=== PATIENT | female | born 1945 | race Caucasian/White ===

== ENCOUNTER → 2019-08-10 | Outpatient (CLI) | payer OTHER ==
[~2019-08-10] VITALS: Ht 157.5 cm; Wt 68.9 kg
[~2019-08-10] MED LIST: ATENOLOL 100MG100 MG PO; AVAPRO300 MG PO; CELEBREX 200 M200 M1 PO; CLARITIN10 M3 PO; FISH OIL + D31 EACH PO; FLORANEX TABLE1 EACH PO; FOSAMAX 70 MG T70 MG PO; LEXAPRO 10 MG T10 M1 PO; NORVASC5 M1 PO; POTASSIUM20 PO; PREMARIN0.625 MG PO; TRIAMTERENE/HCT1 CA1 PO; TUMERIC CURCUMIN PO; VITAMIN C1000 MG PO; WOMEN'S DAILY1 EACH PO
--- NOTE | ~2019-08-10 | HPC ---
[facility] [place] [address] PAIN MANAGEMENT CONSULTATION Name: DOMINIK PHILLIPS Room #: REG [facility].#: [id number] Admission: 08/10/19 Attend Phys: Eliecer Cummings MD Discharge: Date of : 45 Report #: [id number] THIS REPORT FOR: //name// CC: Memo Cummings DATE OF SERVICE: 08/10/2019 CHIEF COMPLAINT: Low back pain secondary to a significant congenital scoliosis with worsening impingement and radiculopathy in the left L3-L4 distribution. The patient is a delightful 74-year-old I am seeing at the request of Dr. Pollock. I have seen her in the past. He responded very favorably to epidural injections and has a favorable response to the procedure! She has been experiencing pain in her left anterior thigh and lateral thigh that is now extending down into the lower leg as well. She also has bilateral hip pain. It has been bad since earlier this spring, but began in earnest in 06/2018. She says it is worse after activity. She has tried chiropractic, physical therapy and does not use much in the way of pain medication other than Celebrex once a day. She is fairly stoic, scoring this pain is a 3/10, worst pain 5/10. MEDICATIONS: Atenolol, irbesartan, amlodipine, triamterene/hydrochlorothiazide, Celebrex, Clarinex, Lexapro, potassium, Premarin, alendronate. She takes numerous supplements, which were reviewed from the record. She carries an EpiPen due to an allergy to NONSTEROIDAL ANTIINFLAMMATORY DRUGS. She suffered anaphylaxis. She is also sensitive to CODEINE which causes nausea and does not take opioids. SOCIAL HISTORY: She denies use of tobacco. Drinks alcoholic beverages a few times a week in a social setting. PAST MEDICAL HISTORY: Positive for hypertension, diffuse osteoarthritis. PREVIOUS SURGERIES: Include breast lumpectomy in 1984, fracture patella in 1998 requiring surgery and hysterectomy in 1989. SOCIAL HISTORY: She is . is supportive and with her. She is a dental hygienist. At the age of 74, still working vp [employer]. She attributes some of her back issues to the bending over she must do in her profession. REVIEW OF SYSTEMS: Positive for fatigue, weakness, occasional night sweats, headaches in the past. She complains of chronic rhinitis and light [facility] [address] [place] [address] PAIN MANAGEMENT CONSULTATION Name: DOMINIK PHILLIPS Room #: REG [facility] Amy#: [id number] Admission: 08/10/19 Attend Phys: Eliecer Cummings MD Discharge: Date of : 45 Report #: [id number] incontinence. She has nocturia. She has a mild essential familial tremor. PHYSICAL EXAMINATION: GENERAL: She is a delightful 74-year-old. She is pleasant, alert and oriented, without signs of depression, anxiety or overmedication. VITAL SIGNS: She is 5 feet 2 inches, 152 pounds, BMI of 27.8. Blood pressure 134/75, heart rate 60, respirations 13. She moves independently from sitting to standing position, walks with mild antalgic gait. Her scoliosis is easily noted even through her clothing. CHEST: Clear to auscultation. CARDIAC: Rhythm is regular. I could not appreciate a murmur. MUSCULOSKELETAL: Reveals good range of motion in the upper extremity joints and in the lower. She has pain across the low back and tenderness in the lumbosacral segment. There is pain with forward flexion and extension of the spine, which reproduces pain into the left leg. Straight leg raising in the sitting and the supine position is positive for reproduction of an L4-L5 radiculopathy. MRI is reviewed with the patient. She does show severe left neural foraminal narrowing at L3-L4, but given her symptoms, I would suspect after looking at the films that the lateral recess is impinging upon the L4 and L5 nerve roots as they pass by the disk. This is likely the source of her pain. IMPRESSION: Lumbar radiculopathy secondary to diffuse degenerative changes, disk protrusion at L3-L4 causing spinal stenosis in the right lateral recess. RECOMMENDATION: Epidural steroid injection under fluoroscopic guidance. PROCEDURE: After informed consent, she was taken to fluoroscopic suite. She was placed prone, skin prepped with ChloraPrep. Skin was anesthetized over the L3-L4 interspace to the left of midline. A 20-gauge Tuohy epidural needle was advanced in the epidural space in first attempt using the loss of resistance technique. There was no blood or CSF aspirated. A 1 mL of Omnipaque was injected and excellent spread of dye was seen along the left lateral recess, was then followed by 3 mL of 0.5% lidocaine. She tolerated the procedure well and was observed for 45 minutes and discharged. She had no weakness. Pain was improved at discharge. She did have a period of incontinence in the recovery room, but is often times slightly incontinent at any rate. This should not be pathologic and we reassured Followup visit planned as needed in 1-2 months. By: [id number] Eliecer Cummings MD /nt
[2019-08-10 12:08] VITALS: BP 134/75
--- NOTE | 2019-08-10 12:22 | NUR ---
Pain Clinic Assessment: 1. History of Osteoarthritis: Left Upper Extremity Right Upper Extremity History of Rheumatoid Arthritis: Not Applicable 2. Height: 5 ft. 2 in. 157.5 cm. Weight: 152.0 lb. oz. 68.947 kg. Patient's BMI: 27.8 3. Vital Signs: BP: 134/75 Pulse: 60 Resp: 13 Temp: 02 Sat: 100 ECG Mon: 4. Pain Intensity: 3 5. Fall Risk: Dizziness: N Needs help standing or walking: N Fallen in the last 3 months: N Fall risk comments: 6. Patient on Blood Thinner: None 7. History of Hypertension: Y 8. Opioid Therapy greater than 6 weeks: N Opiate Contract Signed: 9. Risk Assessment Tool Provided: 10. Functional Assessment Tool: 11. Recreational Drug Use: Never Drug Type: Tobacco Use: Never Smoker Tobacco Type: Amount or Packs/day: How Many Years: Alcohol Use: Yes Frequency: Weekly Quant: 4
== END | disposition home or self-care (01) ==
LOC: PAIN 07:22
DX: M51.16 Intervertebral disc disorders with radiculopathy, lumbar region (principal); M48.061 Spinal stenosis, lumbar region without neurogenic claudication; G89.29 Other chronic pain; I10 Essential (primary) hypertension; M19.90 Unspecified osteoarthritis, unspecified site; Z79.899 Other long term (current) drug therapy; Z88.8 Allergy status to other drugs, medicaments and biological substances; Z98.890 Other specified postprocedural states; Z90.710 Acquired absence of both cervix and uterus